=== PATIENT | male | born 1965 | race American Indian/Alaskan Native ===

== ENCOUNTER 2018-04-07 16:03 | Emergency (ER) | payer OTHER ==
[2018-04-07] MEDS ORDERED: ASPIRIN PO ONE (16:22)
--- NOTE | 2018-04-07 16:55 | Emergency Department Report ---
ED Chest Pain HPI - General Chief Complaint: Chest Pain Stated Complaint: CP/PALPITATIONS Time Seen by Provider: 04/07/18 16:30 Source: patient Mode of arrival: Ambulatory Limitations: No Limitations - History of Present Illness Initial Comments: Mr Govea is a 53 year-old man with hx of HTN who presents from home after episode of chest pain, palpitations. Was sitting in the recliner about 3 hours prior to arrival. Had onset of left sided chest pressure. Was dull ache. no radiation. Endorses palpitations. Lasted for about 2 hours. Now fully resolved. No shortness of breath. Has been coughing a lot recently, clear sputum. No fever. was treated for sinus infection 1.5 weeks ago, finished abx Sunday. Takes carvedilol and lisinopril. 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 Has had episodes of a "funny heart rhythm" in the past. Does not know what. Negative stress test in August. Has had little to eat today. No other complaints. MD Complaint: chest pain, other (palpitations) Onset: during rest Pain Location: left chest Pain Radiation: none Severity: moderate Quality: tightness, heaviness Consistency: now resolved Improves With: nothing Worsens With: nothing Context: recent illness Other Symptoms: cough, palpitations Treatments Prior to Arrival: aspirin Aspirin use within the Past 7 Days: (1) Yes - Related Data Allergies Allergy/AdvReac Type Severity Reaction Status Date / Time No Known Allergies Allergy Unverified 04/07/18 16:21 Heart Score - HEART Score History: Slightly suspicious EKG: Normal Age: 45-65 Risk factors: 1-2 risk factors Troponin: < normal limit HEART Score: 2 ED Review of Systems ROS: Stated complaint: CP/PALPITATIONS Other details as noted in HPI Comment: All other systems reviewed and negative ED Past Medical Hx - Past Medical History Hx Hypertension: Yes - Surgical History Past Surgical History?: No - Social History Smoking Status: Never Smoker ED Physical Exam - General Limitations: No Limitations General appearance: alert, in no apparent distress - Head Head exam: Present: atraumatic, normocephalic - Eye Eye exam: Present: normal appearance, PERRL, EOMI - ENT ENT exam: Present: normal exam, mucous membranes moist - Neck Neck exam: Present: normal inspection. Absent: tenderness - Respiratory Respiratory exam: Present: normal lung sounds bilaterally. Absent: respiratory distress, wheezes, rales, rhonchi - Cardiovascular Cardiovascular Exam: Present: regular rate, normal rhythm. Absent: systolic murmur, diastolic murmur, rubs, gallop - GI/Abdominal GI/Abdominal exam: Present: soft. Absent: distended, tenderness - Rectal Rectal exam: Present: deferred - Extremities Exam Extremities exam: Present: normal inspection - Back Exam Back exam: Present: normal inspection - Neurological Exam Neurological exam: Present: alert, oriented X3 - Psychiatric Psychiatric exam: Present: normal affect, normal mood - Skin Skin exam: Present: warm, dry, intact, normal color. Absent: rash ED Course Vital Signs 04/07/18 04/07/18 04/07/18 16:18 17:01 19:09 Temperature 98.8 F Pulse Rate 78 71 78 Respiratory 16 16 12 Rate Blood Pressure 155/100 Blood Pressure 151/92 167/102 [Left] O2 Sat by Pulse 98 9 L 98 Oximetry 04/07/18 19:42 Temperature Pulse Rate 69 Respiratory Rate Blood Pressure 153/102 Blood Pressure [Left] O2 Sat by Pulse Oximetry ED Medical Decision Making - Lab Data Result diagrams: 04/07/18 16:50 04/07/18 16:50 - EKG Data 04/07/18 1624: HR 73, sinus, normal axis, 1st degree AV block, narrow QRS, QTc 433, no St changes concerning for acute ischemia 04/07/18 1926: HR 65, sinus, normal axis, 1st degree AV block. QTc 417, no ST changes concerning for acute ischemia - Radiology Data Radiology results: report reviewed, image reviewed - Medical Decision Making mr govea is a 53 year-old man with hx of HTN who presents after episode of palpitations and chest pain. Resolved by time he arrived. Hx of unknown dysrhythmia. Onset 3 hours prior to arrival. Exam unremarkable. No reproducible chest pain. Suspect this was arrhytmia, ACS, MSK pain, PNA, PTX, hyperthyroidism. much less likely PE based on history and risk factors. EKG non- ischemic, NSR with 1st degree AV block. Trop neg. Lytes wnl. TSH normal. CBC/ WBC wnl. CXR clear. Repeat EKG unchanged, trop negative. HEART score 2. Discussed need for follow-up with machine stacker. Given care instructions and return precautions. Safe for dc to home. Not ACS, arrhytmia, PTX, PNA, hyperthyroidism. Suspect MSK pain. if symptoms recur, come back to ED. Critical care attestation.: If time is entered above; I have spent that time in minutes in the direct care of this critically ill patient, excluding procedure time. ED Disposition Clinical Impression: Palpitations Chest pain Qualifiers: Chest pain type: unspecified Qualified Code(s): R07.9 - Chest pain, unspecified Disposition: TO HOME OR SELFCARE Is pt being admited?: No Condition: Stable Instructions: Chest Pain (ED), Palpitations (ED) Additional Instructions: Call your machine stacker tomorrow morning to let him/her know you were seen in the ED today. Referrals: PRIMARY CARE, [Primary Care Provider] - 3-5 Days
[2018-04-07 17:14] LABS: Basophils % (Auto) 0.6 % (0.0-1.8); Eosinophils % (Auto) 0.9 % (0.0-4.3); Hematocrit 39.7 % (35.5-45.6); Hemoglobin 13.5 gm/dl (11.8-15.2); Lymphocytes # (Auto) 1.8 K/mm3 (1.2-5.4); Mean Corpuscular HGB Conc 34 % (32-34); Mean Corpuscular Hemoglobin 32 pg (28-32); Mean Corpuscular Volume 95 fl (84-94); Monocytes # (Auto) 0.4 K/mm3 (0.0-0.8); Monocytes % (Auto) 7.2 % (0.0-7.3); Platelet Count 245 K/mm3 (140-440); Red Blood Count 4.18 M/mm3 (3.65-5.03); Red Cell Distribution Width 12.1 % (13.2-15.2)
[2018-04-07 17:32] LABS: Alanine Aminotransferase 18 units/L (7-56); Albumin 4.2 g/dL (3.9-5); BUN/Creatinine Ratio 11; Blood Urea Nitrogen 10 mg/dL (9-20); Calcium 9.7 mg/dL (8.4-10.2); Hemolysis Index 0
[2018-04-07] MEDS ORDERED: COREG PO ONE (19:13)
[2018-04-07 20:13] VITALS: BP 148/93
--- NOTE | 2018-04-07 21:48 | XRay Report ---
FINAL REPORT EXAM: XR CHEST ROUTINE 2V HISTORY: palpitations TECHNIQUE: Two view chest PA and lateral PRIORS: None. FINDINGS: Cardiac and mediastinal contours are unremarkable. No focal pulmonary infiltrate is identified. No pleural fluid collection seen. Pulmonary vasculature is unremarkable. IMPRESSION: Negative two-view chest
== END 2018-04-07 20:22 | disposition home or self-care (01) ==
LOC: ED 16:03
DX: R00.2 Palpitations (principal); R07.9 Chest pain, unspecified; I10 Essential (primary) hypertension
CPT/HCPCS: 36415; 71046; 80053; 83735; 84443; 84484; 85025; 93005; 93010

== ENCOUNTER 2018-11-03 19:12 | Emergency (ER) | payer BC, OTHER ==
[2018-11-03 20:06] LABS: Basophils # (Auto) 0.1 K/mm3 (0.0-0.1); Basophils % (Auto) 0.9 % (0.0-1.8); Eosinophils # (Auto) 0.2 K/mm3 (0.0-0.4); Eosinophils % (Auto) 3.6 % (0.0-4.3); Hematocrit 40.9 % (35.5-45.6); Hemoglobin 13.8 gm/dl (11.8-15.2); Lymphocytes # (Auto) 2.4 K/mm3 (1.2-5.4); Lymphocytes % (Auto) 41.5 % (13.4-35.0); Mean Corpuscular HGB Conc 34 % (32-34); Mean Corpuscular Volume 95 fl (84-94); Monocytes # (Auto) 0.4 K/mm3 (0.0-0.8); Platelet Count 308 K/mm3 (140-440); Red Cell Distribution Width 12.1 % (13.2-15.2)
[2018-11-03 20:17] LABS: BUN/Creatinine Ratio 9; Blood Urea Nitrogen 9 mg/dL (9-20); Calcium 9.4 mg/dL (8.4-10.2); Hemolysis Index 8
[2018-11-03 22:25] VITALS: BP 156/89
--- NOTE | 2018-11-03 23:18 | Emergency Department Report ---
ED Palpitations HPI - General Chief Complaint: Arrhythmia/Palpitations Stated Complaint: HBP Time Seen by Provider: 11/03/18 22:29 Source: patient Mode of arrival: Ambulatory Limitations: No Limitations - History of Present Illness Initial Comments: 53-year-old male presents to the ED with complaint of heart racing, chest discomfort and elevated blood pressure. Patient has also has been feeling anxious. The patient had appointment with PCP earlier today, blood pressure was slightly elevated with systolic BP in the 160s. Patient states his PCP incr eased his BP meds. When he got home, patient was laying in bed and began feeling his heart race. Patient denies chest pain but states he had slight discomfort in the left chest. Denies diaphoresis, shortness of breath, nausea or vomiting. The patient states he has had these episodes before. Patient was admitted here 3 months ago for same. Had negative cardiac workup with normal stress test at that time. Patient has followed up with silverware cleaner, Dr. Gomez. Complaint: "heart racing" -: This evening Context: occured during rest Associated Symptoms: chest pain, anxiety. denies: shortness of breath, nausea/vomiting, diaphoresis - Related Data Home Medications Medication Instructions Recorded Confirmed Last Taken Carvedilol 12.5 mg PO BID 06/15/18 06/15/18 06/15/18 08:00 12.5 MG Losartan Potassium 25 mg PO DAILY 06/15/18 06/15/18 06/15/18 08:00 25 MG Simvastatin 20 mg PO QHS 06/15/18 06/15/18 06/14/18 21:00 Previous Rx's Medication Instructions Recorded Last Taken Type Famotidine [Pepcid] 20 mg PO BID #20 tablet 06/16/18 Unknown Rx levoFLOXacin [Levaquin] 750 mg PO QDAY #7 tablet 06/16/18 Unknown Rx LORazepam [Ativan] 0.5 mg PO BID PRN #10 tab 11/04/18 Unknown Rx Allergies Allergy/AdvReac Type Severity Reaction Status Date / Time No Known Allergies Allergy Verified 06/15/18 08:57 ED Review of Systems ROS: Stated complaint: HBP Other details as noted in HPI Comment: All other systems reviewed and negative Constitutional: denies: chills, fever Respiratory: denies: shortness of breath Cardiovascular: chest pain Gastrointestinal: denies: nausea, vomiting Neurological: denies: headache Psychiatric: anxiety ED Past Medical Hx - Past Medical History Hx Hypertension: Yes - Surgical History Past Surgical History?: No - Social History Smoking Status: Never Smoker Substance Use Type: None - Medications Home Medications: Home Medications Medication Instructions Recorded Confirmed Last Taken Type Carvedilol 12.5 mg PO BID 06/15/18 06/15/18 06/15/18 08:00 History 12.5 MG Losartan Potassium 25 mg PO DAILY 06/15/18 06/15/18 06/15/18 08:00 History 25 MG Simvastatin 20 mg PO QHS 06/15/18 06/15/18 06/14/18 21:00 History Famotidine [Pepcid] 20 mg PO BID #20 tablet 06/16/18 Unknown Rx levoFLOXacin [Levaquin] 750 mg PO QDAY #7 tablet 06/16/18 Unknown Rx LORazepam [Ativan] 0.5 mg PO BID PRN #10 tab 11/04/18 Unknown Rx ED Physical Exam - General Limitations: No Limitations General appearance: alert, in no apparent distress - Head Head exam: Present: atraumatic, normocephalic - Eye Eye exam: Present: normal appearance - ENT ENT exam: Present: mucous membranes moist - Neck Neck exam: Present: normal inspection - Respiratory Respiratory exam: Present: normal lung sounds bilaterally. Absent: respiratory distress - Cardiovascular Cardiovascular Exam: Present: regular rate, normal rhythm - GI/Abdominal GI/Abdominal exam: Present: soft. Absent: distended, tenderness - Extremities Exam Extremities exam: Present: normal inspection - Neurological Exam Neurological exam: Present: alert, oriented X3 - Psychiatric Psychiatric exam: Present: normal affect, normal mood - Skin Skin exam: Present: warm, dry, intact, normal color. Absent: rash ED Course Vital Signs 11/03/18 11/03/18 11/03/18 19:21 21:48 22:00 Temperature 98.5 F Pulse Rate 71 73 72 Respiratory 16 14 13 Rate Blood Pressure 159/110 149/82 O2 Sat by Pulse 100 99 Oximetry 11/03/18 11/03/18 11/03/18 22:15 22:30 22:46 Temperature Pulse Rate 69 65 64 Respiratory 11 L 15 13 Rate Blood Pressure 156/89 156/89 156/89 O2 Sat by Pulse 89 94 97 Oximetry 11/03/18 11/03/18 11/03/18 23:00 23:16 23:30 Temperature Pulse Rate 62 70 67 Respiratory 15 12 11 L Rate Blood Pressure 133/84 133/84 156/89 O2 Sat by Pulse 90 94 94 Oximetry 11/03/18 11/04/18 23:46 00:00 Temperature Pulse Rate 63 65 Respiratory 11 L 11 L Rate Blood Pressure 156/89 156/89 O2 Sat by Pulse 94 94 Oximetry ED Medical Decision Making - Lab Data Result diagrams: 11/03/18 19:44 11/03/18 19:44 - EKG Data -: EKG Interpreted by Me EKG shows normal: sinus rhythm, axis, intervals, QRS complexes, ST-T waves Rate: normal - EKG Data Interpretation: no acute changes - Radiology Data Radiology results: report reviewed, image reviewed - Medical Decision Making Normal stress test 3 months ago. EKG normal today with troponin negative 2. Blood pressure improved to systolic BP in the 130s. Symptoms likely due to anxiety. Prescription for Ativan 0.5 mg to be taken as needed. Advised PCP follow-up. - Differential Diagnosis ACS, anxiety, pneumonia Critical care attestation.: If time is entered above; I have spent that time in minutes in the direct care o f this critically ill patient, excluding procedure time. ED Disposition Clinical Impression: Palpitations Disposition: -01 TO HOME OR SELFCARE Is pt being admited?: No Condition: Stable Instructions: Palpitations (ED), Anxiety (ED) Prescriptions: LORazepam [Ativan] 0.5 mg PO BID PRN #10 tab PRN Reason: Anxiety Referrals: PRIMARY CARE, [Referring] - 3-5 Days Time of Disposition: 00:07
--- NOTE | 2018-11-03 23:45 | XRay Report ---
FINAL REPORT PROCEDURE: XR CHEST 1V AP TECHNIQUE: Chest radiograph anteroposterior view. CPT 10791 HISTORY: palpitations COMPARISON: No prior studies are available for comparison. FINDINGS: Heart: Normal. Mediastinum/Vessels: Normal. Lungs/Pleural space: Normal. Bony thorax: No acute osseous abnormality. Life support devices: None. IMPRESSION: No acute cardiopulmonary abnormality.
== END 2018-11-04 00:21 | disposition home or self-care (01) ==
LOC: ED 19:12
DX: R00.2 Palpitations (principal); I10 Essential (primary) hypertension
CPT/HCPCS: 36415; 71045; 80048; 84484; 85025; 93005; 93010

== ENCOUNTER 2022-04-11 12:25 | Emergency (ER) | payer BC ==
[2022-04-11 13:14] VITALS: BP 111/70
[2022-04-11 15:05] LABS: Hematocrit 41.8 % (35.5-45.6); Mean Corpuscular HGB Conc 34 % (32-34); Mean Corpuscular Volume 94 fl (84-94); Platelet Count 267 K/mm3 (140-440); Red Blood Count 4.44 M/mm3 (3.65-5.03); Red Cell Distribution Width 12.2 % (13.2-15.2)
[2022-04-11 15:39] LABS: Alanine Aminotransferase 28 units/L (7-56); Albumin 3.9 g/dL (3.9-5); BUN/Creatinine Ratio 15; Blood Urea Nitrogen 16 mg/dL (9-20); Calcium 9.4 mg/dL (8.4-10.2); Hemolysis Index 10
--- NOTE | 2022-04-11 16:08 | XRay Report ---
CHEST 2 VIEWS INDICATION: chest pain. COMPARISON: 11/03/2018 FINDINGS: SUPPORT DEVICES: None. HEART: Within normal limits. LUNGS/PLEURA: No acute air space or interstitial disease. No pneumothorax. ADDITIONAL FINDINGS: None. IMPRESSION: 1. No acute findings. Signer Name: Kane Alcala MD Signed: 04/11/2022 4:03 PM Workstation Name: [id number]
[2022-04-11 18:14] LABS: Bacteria,Urine 4+ /HPF (Negative); Mucus,Urine 2+ /HPF
[2022-04-11 18:25] LABS: Bilirubin,Urine Negative (Negative); Blood,Urine Trace (Negative); Color,Urine Yellow (Yellow); WBC,Urine > 182.0 /HPF (0.0-6.0)
[2022-04-11 18:26] LABS: Urobilinogen,Urine < 2.0 mg/dL (<2.0)
[2022-04-11] MEDS ORDERED: ACETAMINOPHEN 500 MG TAB PO ONE (19:07)
[2022-04-11] MEDS ORDERED: LIDOCAINE-MPF (1%) 10 MG/1 ML VIAL 5 ML INFILTRATI ONE (19:07)
[2022-04-11] MEDS ORDERED: ONDANSETRON 4 MG ODT TAB PO ONE (19:07)
[2022-04-11] MEDS ORDERED: IBUPROFEN 600 MG TAB PO ONE (19:08)
--- NOTE | 2022-04-11 19:26 | Emergency Department Report ---
ED General Adult HPI - General Chief complaint: Nausea/Vomiting/Diarrhea Stated complaint: FATIGUE/NAUSEOUS/WEAK Source: patient Mode of arrival: Ambulatory Limitations: No Limitations - History of Present Illness Initial comments: Patient is a 57-year-old -[place] male with a history of hypertension who presents to the ED with complaint of acute onset persistent right diffuse body aches and pains, lightheadedness, generalized weakness and fatigue with nausea, urinary frequency and urgency and dysuria for the last 2 days. Patient states that the symptoms have been persistent especially in the last 8 hours. Patient denies syncope, chest pain, shortness of breath, change in vision, abdominal pain, nausea and vomiting, diarrhea, lack of appetite, fever and chills. MD Complaint: Urinary frequency and urgency, dysuria, body aches and pains, nausea and fa -: Sudden, days(s) (3) Location: back (LOWER), genitals Radiation: non-radiation Severity scale (0 -10): 4 Quality: aching, dull Consistency: intermittent Improves with: none Worsens with: movement Associated Symptoms: denies other symptoms, loss of appetite. denies: confusion, chest pain, cough, diaphoresis, fever/chills, headaches Treatments Prior to Arrival: none - Related Data Home Medications Medication Instructions Recorded Confirmed Last Taken Carvedilol 12.5 mg PO BID 06/15/18 06/15/18 06/15/18 08:00 12.5 MG Losartan Potassium 25 mg PO DAILY 06/15/18 06/15/18 06/15/18 08:00 25 MG Simvastatin 20 mg PO QHS 06/15/18 06/15/18 06/14/18 21:00 Previous Rx's Medication Instructions Recorded Last Taken Type Famotidine [Pepcid] 20 mg PO BID #20 tablet 06/16/18 Unknown Rx levoFLOXacin [Levaquin] 750 mg PO QDAY #7 tablet 06/16/18 Unknown Rx LORazepam [Ativan] 0.5 mg PO BID PRN #10 tab 11/04/18 Unknown Rx Ibuprofen [Motrin] 600 mg PO Q8H PRN #24 tablet 04/11/22 Unknown Rx Ondansetron [Zofran Odt] 4 mg PO Q8HR PRN #15 tab.rapdis 04/11/22 Unknown Rx cephALEXin [Keflex] 500 mg PO Q6HR #40 capsule 04/11/22 Unknown Rx Allergies Allergy/AdvReac Type Severity Reaction Status Date / Time No Known Allergies Allergy Verified 06/15/18 08:57 ED Review of Systems ROS: Stated complaint: FATIGUE/NAUSEOUS/WEAK Other details as noted in HPI Constitutional: chills, malaise. denies: fever Eyes: denies: eye pain, eye discharge, vision change ENT: denies: ear pain, throat pain Respiratory: denies: cough, shortness of breath, wheezing Cardiovascular: denies: chest pain, palpitations Endocrine: no symptoms reported Gastrointestinal: nausea. denies: abdominal pain, vomiting, diarrhea Genitourinary: urgency, dysuria, frequency Musculoskeletal: back pain, arthralgia. denies: joint swelling Skin: denies: rash, lesions Neurological: denies: headache, weakness, paresthesias Psychiatric: denies: anxiety, depression Hematological/Lymphatic: denies: easy bleeding, easy bruising ED Past Medical Hx - Past Medical History Hx Hypertension: Yes - Surgical History Additional Surgical History: Rods in arms - Social History Smoking Status: Current Every Day Smoker Substance Use Type: Marijuana - Medications Home Medications: Home Medications Medication Instructions Recorded Confirmed Last Taken Type Carvedilol 12.5 mg PO BID 06/15/18 06/15/18 06/15/18 08:00 History 12.5 MG Losartan Potassium 25 mg PO DAILY 06/15/18 06/15/18 06/15/18 08:00 History 25 MG Simvastatin 20 mg PO QHS 06/15/18 06/15/18 06/14/18 21:00 History Famotidine [Pepcid] 20 mg PO BID #20 tablet 06/16/18 Unknown Rx levoFLOXacin [Levaquin] 750 mg PO QDAY #7 tablet 06/16/18 Unknown Rx LORazepam [Ativan] 0.5 mg PO BID PRN #10 tab 11/04/18 Unknown Rx Ibuprofen [Motrin] 600 mg PO Q8H PRN #24 tablet 04/11/22 Unknown Rx Ondansetron [Zofran Odt] 4 mg PO Q8HR PRN #15 tab.rapdis 04/11/22 Unknown Rx cephALEXin [Keflex] 500 mg PO Q6HR #40 capsule 04/11/22 Unknown Rx ED Physical Exam - General Limitations: No Limitations General appearance: alert, in no apparent distress - Head Head exam: Present: atraumatic, normocephalic, normal inspection - Eye Eye exam: Present: normal appearance, PERRL, EOMI Pupils: Present: normal accommodation - ENT ENT exam: Present: normal exam, normal orophraynx, mucous membranes moist, TM's normal bilaterally, normal external ear exam - Neck Neck exam: Present: normal inspection, full ROM. Absent: tenderness - Respiratory Respiratory exam: Present: normal lung sounds bilaterally. Absent: respiratory distress, wheezes, rales, rhonchi, chest wall tenderness, accessory muscle use - Cardiovascular Cardiovascular Exam: Present: regular rate, normal rhythm, bradycardia, tachycardia, normal heart sounds. Absent: systolic murmur, diastolic murmur, rubs, gallop - GI/Abdominal GI/Abdominal exam: Present: soft, normal bowel sounds. Absent: tenderness, guarding, rebound, hyperactive bowel sounds, hypoactive bowel sounds, organomegaly, mass, bruit, pulsatile mass - Extremities Exam Extremities exam: Present: normal inspection, full ROM, normal capillary refill. Absent: tenderness - Back Exam Back exam: Present: normal inspection, full ROM, tenderness, CVA tenderness (R), CVA tenderness (L), paraspinal tenderness - Neurological Exam Neurological exam: Present: alert, oriented X3, CN II-XII intact, normal gait, reflexes normal - Psychiatric Psychiatric exam: Present: normal affect, normal mood - Skin Skin exam: Present: warm, dry, intact, normal color. Absent: rash ED Course Vital Signs 04/11/22 13:07 Temperature 98.9 F Pulse Rate 53 L Respiratory 17 Rate Blood Pressure 111/70 [Right] O2 Sat by Pulse 97 Oximetry ED Medical Decision Making - Lab Data Result diagrams: 04/11/22 14:15 04/11/22 14:15 - Radiology Data Radiology results: report reviewed, image reviewed [facility] [address] [place] [address] XRay Report Signed Patient: PHILLIP TAY JR MR#: [id number] : 1965 Acct:[id number] Age/Sex: 57 / M ADM Date: 04/11/22 Loc: ED Attending Dr: Ordering Physician: ANURADHA TRIANA Date of Service: 04/11/22 Procedure(s): XR chest routine 2V Accession Number(s): [id number] cc: RUDDY ANURADHA HOSKINS Fluoro Time In Minutes: CHEST 2 VIEWS INDICATION: chest pain. COMPARISON: 11/03/2018 FINDINGS: SUPPORT DEVICES: None. HEART: Within normal limits. LUNGS/PLEURA: No acute air space or interstitial disease. No pneumothorax. ADDITIONAL FINDINGS: None. IMPRESSION: 1. No acute findings. Signer Name: Kane Alcala MD Signed: 04/11/2022 4:03 PM Workstation Name: [id number] Transcribed By: DILLON Dictated By: Kane Alcala MD Electronically Authenticated By: Kane Alcala MD Signed Date/Time: 04/11/221602 DD/ 02 TD/TT: Print - Medical Decision Making This is a 57-year-old -[place] male with a history of hypertension who presents to the ED with complaint of acute onset persistent right diffuse body aches and pains, lightheadedness, generalized weakness and fatigue with nausea, urinary frequency and urgency and dysuria for the last 2 days. Patient states that the symptoms have been persistent especially in the last 8 hours. In the ED, patient is alert and oriented x3 and is not in any distress. Patient is hemodynamically stable. Lab test results were reviewed and are all nonactionable except from significant urinary tract infection in urinalysis and mild hyponatremia 133 mmol/L. Chest x-ray showed no acute cardiopulmonary abnormalities or pneumonitis. Patient was treated in the ED with Rocephin 1 g intramuscular injection in the ED and also given pain medication and. I am. Patient was discharged home on pain medication and antibiotics and advised to follow-up with his primary care physician in 7 to 10 days for reevaluation or return to the ED immediately if symptoms get worse. - Differential Diagnosis UTI; URI; viral syndrome; dehydration; muscle spasm of back Critical care attestation.: If time is entered above; I have spent that time in minutes in the direct care of this critically ill patient, excluding procedure time. ED Disposition Clinical Impression: Acute urinary tract infection, Weakness generalized Disposition: 01 HOME / SELF CARE / HOMELESS Is pt being admited?: No Does the pt Need Aspirin: No Condition: Stable Instructions: Weakness, [id number], Urinary Tract Infection, Adult, [id number] Additional Instructions: All lab test results were reviewed and are all nonactionable except for urinary tract infection in urinalysis. Chest x-ray showed no acute cardiopulmonary abnormalities or pneumonitis. Therefore take medication with food, drink plenty of fluids, follow-up with your primary care physician in 7 to 10 days for reevaluation. Return to the ED immediately if symptoms get worse. Prescriptions: cephALEXin [Keflex] 500 mg PO Q6HR #40 capsule Ibuprofen [Motrin] 600 mg PO Q8H PRN #24 tablet PRN Reason: Pain Ondansetron [Zofran Odt] 4 mg PO Q8HR PRN #15 tab.rapdis PRN Reason: Nausea Referrals: ALEXSANDER ANGLIN MD [Staff Physician] - 3-5 Days Forms: Work/School Release Form(ED) Time of Disposition: 19:44 Print Language: PERSIAN
== END 2022-04-11 20:10 | disposition home or self-care (01) ==
LOC: ED 12:25
DX: N39.0 Urinary tract infection, site not specified (principal); M79.18 Myalgia, other site; R53.1 Weakness; I10 Essential (primary) hypertension; F17.200 Nicotine dependence, unspecified, uncomplicated; F12.90 Cannabis use, unspecified, uncomplicated; Z79.899 Other long term (current) drug therapy
CPT/HCPCS: 36415; 71046; 80053; 81001; 85027; 96372; 99284; J0696; J3490; Q0162